=== PATIENT | male | born 1995 | race Caucasian/White ===

== ENCOUNTER 2017-11-27 03:35 | Emergency (ER) | payer SELFPAY ==
--- NOTE | 2017-11-27 04:31 | PDOC ---
History of Present Illness - General Chief Complaint: Chest Pain Stated Complaint: CHEST PAIN Time Seen by Provider: 11/27/17 04:05 History Source: Patient Exam Limitations: Language Barrier - History of Present Illness Initial Comments: 11/27/17 04:22 Pt is a 22yo m with no significant PMH presenting to ED with complaints of palpitations, chest pain and shortness of breath with dry cough. Pt said this has been going on for 2 days intermittently. Pt says he thinks it is because he is feeling anxious. He was seen at [facility] 2 days ago. Pain is located in his L chest, does not radiate. Laying down helps, nothing makes it worse, pain is sharp 6/10. He denies recent illnesses, fevers, chills, abdominal pain, n/v/ d urinary symptoms, weakness. denies anyone in the family having NM, no history of sudden or early deaths in the family. Pt smokes 10 cigarettes PCP: none PMH: none PSH: Meds:none social: occasional marijuana use, 10 cigarettes/day, denies alcohol use, illicit drug use Past History - Past Medical History Allergies/Adverse Reactions: Allergies Allergy/AdvReac Type Severity Reaction Status Date / Time No Known Allergies Allergy Verified 11/27/17 04:12 Home Medications: Ambulatory Orders NK [No Known Home Medication] 11/27/17 - Suicide/Smoking/Psychosocial Hx Smoking History: Current some day smoker Have you smoked in the past 12 months: No Information on smoking cessation initiated: No Hx Alcohol Use: No Drug/Substance Use Hx: No Substance Use Type: None Review of Systems - Review of Systems Constitutional: No: Chills, Fever, Weakness HEENTM: Yes: Ear Pain. No: Recent change in vision, Nose Congestion, Throat Pain Respiratory: Yes: See HPI, Cough, Shortness of Breath. No: Productive cough, Hemoptysis Cardiac (ROS): Yes: See HPI, Chest Pain, Palpitations. No: Syncope ABD/GI: No: Diarrhea, Nausea, Vomiting : No: Dysuria, Hematuria Musculoskeletal: No: Back Pain, Joint Pain, Muscle Weakness, Neck Pain Neurological: No: Headache, Numbness, Tingling, Tremors, Weakness *Physical Exam - Vital Signs Last Vital Signs Temp Pulse Resp BP Pulse Ox 97.6 F 88 18 160/70 100 11/27/17 03:35 11/27/17 03:35 11/27/17 03:35 11/27/17 03:35 11/27/17 03:35 - Physical Exam Comments: 11/27/17 04:52 PT resting in bed comfortably General Appearance: Yes: Nourished, Appropriately Dressed. No: Apparent Distress HEENT: positive: EOMI, ASHLYN, Normal Voice, Hearing Grossly Normal, Other ( conjunctival injection in L). negative: Photophobia, Scleral Icterus (R), Scleral Icterus (L), Sinus Tenderness Neck: positive: Trachea midline, Supple. negative: Decreased range of motion, Lymphadenopathy (R), Lymphadenopathy (L) Respiratory/Chest: positive: Wheezing (R>L). negative: Chest Tender, Respiratory Distress, Labored Respiration, Rapid RR, Decreased Breath Sounds, Crackles Cardiovascular: positive: Regular Rhythm, Regular Rate, S1, S2. negative: Edema , JVD, Murmur Vascular Pulses: Carotid (R): 2+, Carotid (L): 2+, Dorsalis-Pedis (R): 2+, Doralis-Pedis (L): 2+ Gastrointestinal/Abdominal: positive: Normal Bowel Sounds, Soft. negative: Guarding, Rebound, Tenderness, Hernia Musculoskeletal: negative: CVA Tenderness, Muscle Spasm, Vertebral Tenderness Extremity: positive: Normal Capillary Refill. negative: Swelling, Calf Tenderness Integumentary: positive: Normal Color, Dry, Warm Neurologic: positive: rn endocrinology II-XII NML intact, Fully Oriented, Alert, Normal Mood/ Affect, Normal Response, Motor Strength 5/5 ED Treatment Course - LABORATORY CBC & Chemistry Diagram: 11/27/17 05:20 11/27/17 05:20 Medical Decision Making - Medical Decision Making 11/27/17 04:55 previously healthy 22yo m presenting to ED with complaints of SOB, palpitations and chest pain. Smokes 10 cigarettes/day Vitals: hypertensive at first, recheck showed bp at 132/78 otherwise wnl PE: my exam revealed wheezing in R lung arroyo DDx: acs, pna, ptx, esophagitis, gerd, pe, tamponade Low suspicion for tamponade due to lack of JVD and normal vital signs, no rubs heard on exam. Lower suspicion for pna due to lack of fever. Lower suspicion for ptx due to breaths heard bilaterally. However will order cxr. Low suspicion for PE: no recent travel, no signs of DVT, no hemoptysis, no recent surgeries, no hx malignancy, normal vital signs. PERC negative. Will order EKG, trop, cbc, cmp. EKG revealed u waves, sinus rhythnm with arrhythmia poss due to breathing. U waves could be physiologic due to patient's age. Mg and Phos added to labs. Ordered DuoNeb for wheezing. Will reevaluate. *DC/Admit/Observation/Transfer Diagnosis at time of Disposition: Palpitations, Shortness of breath, Anxiety Chest pain Qualifiers: Chest pain type: other chest pain Qualified Code(s): R07.89 - Other chest pain - Discharge Dispostion Disposition: HOME Condition at time of disposition: Good Decision to Admit order: No - Referrals - Patient Instructions Printed Discharge Instructions: DI for Shortness of Breath, DI for Chest Pain, DI for Palpitations, Smoking Cessation Additional Instructions: Lo vieron hoy aqu para evaluar palpitaciones, falta de aliento y dolor en el pecho. Todas tus pruebas fueron normales. No s qu puede estar causando viraj sntomas, amado no sucede nada peligroso. Le recomiendo que consulte a un mdico de atencin primaria. Le he dado un folleto con el nmero de contacto de la clnica. [place] te recomiendo que veas a un cardilogo si sigues sintiendo palpitaciones. Puede llamar al . Si sigue sintiendo falta de aliento, puede landon a un neumlogo: Dr. Arreola [phone] Por favor, amando de fumar! Jose Manuel tinoco puede causar estos sntomas y no es lopez para cardoso preet. Regrese a la [place] de emergencias si: las palpitaciones empeoran, siente que no puede respirar, desarrolla omar en el pecho, pierde el conocimiento o si se presenta algn sntoma nuevo. Sofia You were seen here today for evaluation of palpitations, shortness of breath and chest pain. All your tests were normal. I do not know what may be causing your symptoms but nothing dangerous is happening. I highly recommend you see a primary care doctor. I have given you a pamphlet with the contact number for the clinic. I also recommend you see a refuse and recycling worker if you continue to feel palpitations. You can call . If you continue to feel short of breath, you can see a silverware washer: Dr. Arreola Please stop smoking! Smoking can also cause these symptoms and is not good for your health. Please come back to the emergency room if: palpitations get worse, you feel like you cannot breathe, you develop chest pains, you lose consciousness, or if any new concerning symptom develops. Thank you Print Language: MARSHALLESE - Post Discharge Activity
[2017-11-27] MEDS ORDERED: ALBUTEROL SO4 2.5/IPRATROPIUM 0.5 INH SOL 3 ML VIAL.NEB. NEB ONE (04:44)
--- NOTE | 2017-11-27 05:14 | PDOC ---
Attending Attestation - Resident Resident Name: TalitaDorina - ED Attending Attestation I have performed the following: I have examined & evaluated the patient, The case was reviewed & discussed with the resident, I agree w/resident's findings & plan, Exceptions are as noted - HPI HPI: 11/27/17 05:12 22 M with no PMH presents to ED with chest pain. Pt reports midsternal chest pain. Describes it as a pressure, intermittent, non-radiating. Also endorses cough and SOB. No F/C. Pt denies leg swelling. No recent travel/immobilization. No FH of early CT. - Physicial Exam PE: 11/27/17 05:13 "GENERAL: Awake, alert, and fully oriented, in no acute distress. HEAD: No signs of trauma EYES: PERRLA, EOMI, sclera anicteric, conjunctiva clear ENT: Auricles normal inspection, hearing grossly normal, nares patent, oropharynx clear without exudates. Moist mucosa NECK: Nontender, no stepoffs, Normal ROM, supple, no lymphadenopathy, JVD, or masses LUNGS: Breath sounds equal, clear to auscultation bilaterally. No wheezes, and no crackles HEART: Regular rate and rhythm, normal S1 and S2, no murmurs, rubs or gallops ABDOMEN: Soft, nontender, normoactive bowel sounds. No guarding, no rebound. No masses EXTREMITIES: Normal range of motion, no edema. No clubbing or cyanosis. No cords, erythema, or tenderness NEUROLOGICAL: Cranial nerves II through XII intact. 5/5 strength and sensation in all extremities, Normal speech, normal gait, normal cerebellar function SKIN: Warm, Dry, normal turgor, no rashes or lesions noted. - Medical Decision Making 11/27/17 05:13 22 M with atypical chest pain. EKG nonischemic. Pt's PERC score is 0. Possible post-viral bronchitis as pt reports cough. - Labs, trop - CXR - Trial of albuterol 11/27/17 06:33 Labs wnl CXR clear on my read pt reassessed - reports complete resolution of symptoms. Pt is well appearing, with normal vitals. Clinically stable for DC at this time. I discussed the physical exam findings, ancillary test results and final diagnoses with the patient. I answered all of the patient's questions. The patient was satisfied with the care received and felt comfortable with the discharge plan and treatment plan. The patient agrees to follow up with the primary care physician within 24-72 hours.
[2017-11-27 05:26] VITALS: TEMP 97.6; BMI 47.6
[2017-11-27 05:40] LABS: BASO % 0.7 % (0-2.0); EOS % 1.4 % (0-4.5); HEMATOCRIT 44.4 % (35.4-49); HEMOGLOBIN 15.3 GM/dL (11.7-16.9); LYMPH % 28.8 % (8-40); MCH 31.7 pg (25.7-33.7); MCHC 34.5 g/dl (32.0-35.9); MEAN CELL VOLUME 91.8 fl (80-96); MEAN PLT VOLUME 8.3 fl (7.5-11.1); MONO % 6.6 % (3.8-10.2); NEUT % 62.5 % (42.8-82.8); PLATELET COUNT 280 K/MM3 (134-434); RBC 4.83 M/mm3 (4.00-5.60); RDW 13.1 % (11.9-15.9)
[2017-11-27 06:05] LABS: ALBUMIN 4.2 g/dl (3.4-5.0); ALK PHOS 126 U/L (45-117); ANION GAP 7 MMOL/L (8-16); BILIRUBIN,TOTAL 0.8 mg/dL (0.2-1); BLOOD UREA NITROGEN 15 mg/dL (7-18); CALCIUM 9.1 mg/dL (8.5-10.1); CHLORIDE 106 mmol/L (98-107); CO2 27 mmol/L (21-32); GLUCOSE,RANDOM 95 mg/dL (74-106); MAGNESIUM 2.5 mg/dL (1.8-2.4); PHOSPHOROUS 2.1 mg/dL (2.5-4.9); POTASSIUM 3.8 mmol/L (3.5-5.1); SGOT/AST 21 U/L (15-37); SGPT/ALT 21 U/L (13-61); SODIUM 140 mmol/L (136-145); TOT PROT 7.9 g/dl (6.4-8.2)
[2017-11-27 06:40] VITALS: BP 133/79; PULSE 64
--- NOTE | 2017-11-27 12:08 | EKG ---
Test Reason : Blood Pressure : / mmHG Vent. Rate : 089 BPM Atrial Rate : 089 BPM P-R Int : 156 ms QRS Dur : 086 ms QT Int : 360 ms P-R-T Axes : 068 089 041 degrees QTc Int : 438 ms SINUS RHYTHM WITH MARKED SINUS ARRHYTHMIA OTHERWISE NORMAL ECG NO PREVIOUS ECGS AVAILABLE Confirmed by LEANN SCHILLING, NICA ([id number]) on 11/27/2017 12:08:33 PM Referred By: Confirmed By:NICA NORIEGA MD
== END 2017-11-27 06:40 | disposition home or self-care (01) ==
LOC: JER 03:35
PROC: 3E0F7GC Introduction of Other Therapeutic Substance into Respiratory Tract, Via Natural or Artificial Opening (ICD-10-PCS; principal; 2017-11-27)
DX: R07.89 Other chest pain (principal); R06.02 Shortness of breath; F41.9 Anxiety disorder, unspecified; R00.2 Palpitations
CPT/HCPCS: 36415; 71046-TC-FY; 80053; 82550; 82553; 83735; 84100; 84484; 85025; 93005; 93010; 99281-25; J7620

== ENCOUNTER 2017-12-01 23:09 | Emergency (ER) | payer SELFPAY ==
[2017-12-01 23:12] VITALS: BP 111/55; PULSE 56; TEMP 98.2
[2017-12-02] MEDS ORDERED: ONDANSETRON 4 MG TABLET PO ONE (01:56)
--- NOTE | 2017-12-02 01:57 | PDOC ---
History of Present Illness - General Chief Complaint: Nausea/Vomiting Stated Complaint: VOMIT Time Seen by Provider: 12/02/17 01:56 History Source: Patient - History of Present Illness Initial Comments: 12/02/17 02:16 22 year old male with nausea and vomiting after having a panic attack today prior to arrival. patient reports no symptoms at this time. tolerated PO bruce michelle with no difficulty. Past History - Past Medical History Allergies/Adverse Reactions: Allergies Allergy/AdvReac Type Severity Reaction Status Date / Time No Known Allergies Allergy Verified 12/01/17 23:14 Home Medications: Ambulatory Orders NK [No Known Home Medication] 11/27/17 COPD: No - Suicide/Smoking/Psychosocial Hx Smoking History: Never smoked Have you smoked in the past 12 months: No Information on smoking cessation initiated: No Hx Alcohol Use: No Drug/Substance Use Hx: No Substance Use Type: None *Physical Exam - Vital Signs Last Vital Signs Temp Pulse Resp BP Pulse Ox 98.2 F 56 L 18 111/55 L 98 12/01/17 23:11 12/01/17 23:11 12/01/17 23:11 12/01/17 23:11 12/01/17 23:11 - Physical Exam General Appearance: Yes: Appropriately Dressed Respiratory/Chest: positive: Lungs Clear, Normal Breath Sounds Cardiovascular: positive: Regular Rhythm, Regular Rate Gastrointestinal/Abdominal: positive: Normal Bowel Sounds, Soft. negative: Tender Musculoskeletal: positive: Normal Inspection Integumentary: positive: Normal Color, Dry, Warm Neurologic: positive: Fully Oriented, Alert, Normal Mood/Affect *DC/Admit/Observation/Transfer Diagnosis at time of Disposition: Anxiety, Nausea & vomiting - Referrals Referrals: [facility] [Outside] - Call tomorrow - Patient Instructions Printed Discharge Instructions: DI for Vomiting -- Adult Additional Instructions: please follow up with in the clinic as soon as possible. drink plenty of fluids. Additional Instructions: * Please call your personal physician to report your Emergency Department visit and to report your progress, if any. * If there is no improvement in symptoms in 2 days call your physician. * Return to the Emergency Department for any worsening symptoms. - Post Discharge Activity Forms/Work/School Notes: Back to Work
[2017-12-02] MEDS ORDERED: ONDANSETRON *ODT* 4 MG TABLET ONE (02:45)
--- NOTE | 2017-12-02 04:28 | PDOC ---
*Physical Exam - Vital Signs Last Vital Signs Temp Pulse Resp BP Pulse Ox 98.2 F 56 L 18 111/55 L 98 12/01/17 23:11 12/01/17 23:11 12/01/17 23:11 12/01/17 23:11 12/01/17 23:11 ED Treatment Course - Medications Given in the ED: ED Medications Discontinued Medications Generic Name Dose Route Start Last Admin Trade Name Inés PRN Reason Stop Dose Admin Ondansetron HCl 4 mg 12/02/17 01:56 12/02/17 02:53 Zofran - PO 12/02/17 01:57 4 mg ONCE ONE Administration Medical Decision Making - Medical Decision Making 12/02/17 04:27 History and physical as documented in general medical note from this visit discussed case with SALON/SPA MANAGER, agree with plan *DC/Admit/Observation/Transfer Diagnosis at time of Disposition: Anxiety, Nausea & vomiting - Referrals Referrals: [facility] [Outside] - Call tomorrow - Patient Instructions Printed Discharge Instructions: DI for Vomiting -- Adult Additional Instructions: please follow up with in the clinic as soon as possible. drink plenty of fluids. Additional Instructions: * Please call your personal physician to report your Emergency Department visit and to report your progress, if any. * If there is no improvement in symptoms in 2 days call your physician. * Return to the Emergency Department for any worsening symptoms. - Post Discharge Activity Forms/Work/School Notes: Back to Work
== END 2017-12-02 03:24 | disposition home or self-care (01) ==
LOC: JER 23:09
DX: F41.9 Anxiety disorder, unspecified (principal); R11.2 Nausea with vomiting, unspecified
CPT/HCPCS: 99281-25; 99282-25